=== PATIENT | female | born 1965 | race Caucasian/White ===

== ENCOUNTER 2017-09-26 16:54 | Emergency (ER) | payer OTHER ==
[2017-09-26] MEDS: fentaNYL PF VIAL 100 MCG/2 ML VIAL IV (17:25)
[2017-09-26] MEDS: ONDANSETRON PF 4 MG/2 ML VIAL. IV (17:25)
[2017-09-26] MEDS: MORPHINE SULFATE 4 MG/ML DISP.SYRIN. IV (18:28)
[2017-09-26] MEDS: MORPHINE SULFATE 4 MG/ML DISP.SYRIN. IM (18:30)
== END 2017-09-26 21:03 | disposition home or self-care (01) ==
LOC: ER 16:54
DX: S43.101A Unspecified dislocation of right acromioclavicular joint, initial encounter (principal); S50.01XA Contusion of right elbow, initial encounter; Z88.2 Allergy status to sulfonamides; Z88.1 Allergy status to other antibiotic agents; Z88.5 Allergy status to narcotic agent; Z88.8 Allergy status to other drugs, medicaments and biological substances; V43.62XA Car passenger injured in collision with other type car in traffic accident, initial encounter; Y93.89 Activity, other specified; Y92.410 Unspecified street and highway as the place of occurrence of the external cause; Y99.8 Other external cause status
CPT/HCPCS: 29105; 73030; 73080; 96374; 96375; 99284-25; J2270; J2405; J3010